=== PATIENT | male | born 1990 | race American Indian/Alaskan Native ===

== ENCOUNTER 2019-06-09 00:18 | Emergency (ER) | payer SELFPAY ==
[2019-06-09] MEDS ORDERED: dexAMETHasone 4 MG/ML VIAL IM ONE (02:11)
--- NOTE | 2019-06-09 02:18 | Emergency Department Report ---
ED Asthma HPI - General Chief Complaint: Adult Asthma Stated Complaint: SHORTNESS OF BREATH Time Seen by Provider: 06/09/19 02:10 Source: patient Mode of arrival: Ambulatory Limitations: No Limitations - History of Present Illness MD Complaint: "asthma attack" -: Gradual Severity: mild, moderate Context: ran out of meds (physical from [place] and left his albuterol pump and) Associated Symptoms: none - Related Data Previous Rx's Medication Instructions Recorded Last Taken Type ALBUTEROL Inhaler (OR & NICU) 1 puff IH Q4-6H PRN #1 inha 06/09/19 Unknown Rx [ProAir HFA Inhaler] ALBUTEROL Inhaler (OR & NICU) 1 puff IH QID PRN #8.5 gram 06/09/19 Unknown Rx [ProAir HFA Inhaler] Allergies Allergy/AdvReac Type Severity Reaction Status Date / Time Sulfa (Sulfonamide Allergy Hives Verified 06/09/19 01:21 Antibiotics) ED Review of Systems ROS: Stated complaint: SHORTNESS OF BREATH Other details as noted in HPI Comment: All other systems reviewed and negative ED Past Medical Hx - Past Medical History Previous Medical History?: Yes Hx Asthma: Yes - Surgical History Past Surgical History?: No - Social History Smoking Status: Never Smoker Substance Use Type: None - Medications Home Medications: Home Medications Medication Instructions Recorded Confirmed Last Taken Type ALBUTEROL Inhaler (OR & NICU) 1 puff IH Q4-6H PRN #1 inha 06/09/19 Unknown Rx [ProAir HFA Inhaler] ALBUTEROL Inhaler (OR & NICU) 1 puff IH QID PRN #8.5 gram 06/09/19 Unknown Rx [ProAir HFA Inhaler] ED Physical Exam - General Limitations: No Limitations General appearance: alert, in no apparent distress - Head Head exam: Present: atraumatic, normocephalic - Eye Eye exam: Present: normal appearance, PERRL, EOMI Pupils: Present: normal accommodation, irregular - ENT ENT exam: Present: normal exam, normal orophraynx, mucous membranes moist - Neck Neck exam: Present: normal inspection, full ROM - Respiratory Respiratory exam: Present: normal lung sounds bilaterally. Absent: respiratory distress, accessory muscle use, decreased breath sounds - Cardiovascular Cardiovascular Exam: Present: regular rate, normal rhythm. Absent: systolic murmur, diastolic murmur, rubs, gallop - GI/Abdominal GI/Abdominal exam: Present: soft, normal bowel sounds - Rectal Rectal exam: Present: deferred - Extremities Exam Extremities exam: Present: normal inspection - Back Exam Back exam: Present: normal inspection - Neurological Exam Neurological exam: Present: alert, oriented X3 - Psychiatric Psychiatric exam: Present: normal affect, normal mood - Skin Skin exam: Present: warm, dry, intact, normal color. Absent: rash ED Course Vital Signs 06/09/19 00:23 Temperature 98.0 F Pulse Rate 92 H Respiratory 18 Rate Blood Pressure 123/84 O2 Sat by Pulse 96 Oximetry ED Medical Decision Making - Medical Decision Making 28-year-old [place] male with past medical history of asthma that this inhaler and [place] Differential Diagnosis: Cough, wheezing, asthma exacerbation, pneumonia, seasonal allergies, viral syndrome, Pneumothorax. Rationale: Given the history of cough, difficulty breathing, wheeze and history of asthma, the patients symptoms may be attributed to either viral syndrome, pneumonia, acute asthma exacerbation or pneumothorax. Most likely, this represents an acute asthma exacerbation. 1) STAT bronchodilator therapy and steroids will be given, with re-assessments between nebulized treatments. Also included patient very briskly about emergency department and he is able to maintain saturation at 100%. No wheezing was discovered. No cough no hemoptysis no chest pain or shortness of breath 2) If worsening or persistent symptoms occur, the patient may require critical care management or admission to the hospital. Critical care attestation.: If time is entered above; I have spent that time in minutes in the direct care of this critically ill patient, excluding procedure time. ED Disposition Clinical Impression: Asthma Disposition: [id number] TO HOME OR SELFCARE Is pt being admited?: No Does the pt Need Aspirin: No Condition: Stable Instructions: Asthma (ED), Reactive Airways Disease (ED) Additional Instructions: You should return to the hospital if: you begin to develop worsening shortness of breath/difficulty breathing despite treatment with your prescribed medications, if you develop fevers for greater than 2 days, worsening cough, or for any other concerns with your breathing or any other problems. For more information on Asthma please visit the [employer]'s Website at: [email or web address] Referrals: [facility] [Provider Group] - 3-5 Days
[2019-06-09 05:22] VITALS: BP 118/78
== END 2019-06-09 03:07 | disposition home or self-care (01) ==
LOC: ED 00:18
DX: J45.909 Unspecified asthma, uncomplicated (principal); Z88.2 Allergy status to sulfonamides
CPT/HCPCS: 96372; 99282; J1100